=== PATIENT | female | born 1935 | race Caucasian/White ===

== ENCOUNTER 2019-08-02 16:37 | Inpatient (IN) | payer MEDICARE, BC ==
[~2019-08-02] VITALS: Ht 162.6 cm; Wt 49.0 kg
[2019-08-02] MEDS ORDERED: ACETAMINOPHEN ES 500 MG TABLET PO ONE (18:00)
[2019-08-02] MEDS ORDERED: NEOMY/BACITRA/POLYMYXIN B OINT UD PACKET TP ONE ×2 (18:00→18:04)
[2019-08-02] MEDS ORDERED: ACETAMINOPHEN ES 500 MG TABLET ONE (18:04)
--- NOTE | 2019-08-02 20:00 | NUR ---
Patient in room interacting with friend with no distress noted.
[2019-08-02] MEDS ORDERED: TDAP DIPH,PERTUSS,TET VAC/PF 0.5 ML DISP.SYRIN IM ONE ×2 (21:00→21:24)
--- NOTE | 2019-08-02 21:15 | NUR ---
MYLES BOURNE LIGHT ARMORED VEHICLE OFFICER GYMNASIUM TEACHER FOR EPIC INTO EVAL PATIENT.
[2019-08-02 21:18] LABS: BASOPHILS # (AUTO) 0.1 K/uL (0.0-8.0); BASOPHILS % (AUTO) 1.1 % (0.0-2.0); EOSINOPHILS # (AUTO) 0.1 K/uL (0.0-0.7); EOSINOPHILS % (AUTO) 1.3 % (0.0-7.0); HEMATOCRIT 28.7 % (31.2-41.9); HEMOGLOBIN 9.5 g/dL (10.9-14.3); LYMPHOCYTES % (AUTO) 20.8 % (20.5-51.5); MEAN CORPUSCULAR HGB CONC 33 g/dL (32.3-35.6); MEAN CORPUSCULAR VOLUME 87.2 fL (75.5-95.3); MONOCYTES # (AUTO) 0.5 K/uL (2.0-10.0); NEUTROPHILS # (AUTO) 3.2 K/uL (1.8-8.9); NEUTROPHILS % (AUTO) 65.8 % (38.5-71.5); PLATELET COUNT (AUTO) 78 K/uL (179-408); RED BLOOD CELL COUNT(AUTO) 3.29 MIL/uL (3.63-4.92); WHITE BLOOD COUNT (AUTO) 4.8 K/uL (3.8-11.8)
[2019-08-02 21:29] LABS: CREATININE 0.7 mg/dL (0.6-1.3); POTASSIUM 4.1 mmol/L (3.5-5.1)
[2019-08-02] MEDS ORDERED: Z GUARD REMEDY PASTE 57 GM TUBE TOP PRN (22:00)
[2019-08-02] MEDS ORDERED: MAGNESIUM HYDROXIDE 30 ML LIQUID UDC PO PRN (22:00)
[2019-08-02] MEDS ORDERED: ONDANSETRON 4 MG/2 ML VIAL IV PRN (22:00)
--- NOTE | 2019-08-02 22:35 | NUR ---
Transfered to 3rd floor via wheelchair.
[2019-08-02] MEDS: IV NS 1000 ML 1,000 ML IV PRN (23:37)
[2019-08-02 23:38] VITALS: BP 128/69
[2019-08-03 05:11] VITALS: BP 138/99
[2019-08-03 06:23] LABS: BASOPHILS % (AUTO) 0.6 % (0.0-2.0); EOSINOPHILS # (AUTO) 0.1 K/uL (0.0-0.7); EOSINOPHILS % (AUTO) 2.4 % (0.0-7.0); HEMATOCRIT 26.4 % (31.2-41.9); HEMOGLOBIN 8.8 g/dL (10.9-14.3); LYMPHOCYTES % (AUTO) 22.4 % (20.5-51.5); MEAN CORPUSCULAR HEMOGLOBIN 29.1 uug (24.7-32.8); MEAN CORPUSCULAR HGB CONC 33 g/dL (32.3-35.6); MONOCYTES # (AUTO) 0.6 K/uL (2.0-10.0); MONOCYTES % (AUTO) 12.9 % (0.0-11.0); NEUTROPHILS # (AUTO) 2.7 K/uL (1.8-8.9); NEUTROPHILS % (AUTO) 61.7 % (38.5-71.5); PLATELET COUNT (AUTO) 76 K/uL (179-408); RED BLOOD CELL COUNT(AUTO) 3.03 MIL/uL (3.63-4.92); WHITE BLOOD COUNT (AUTO) 4.4 K/uL (3.8-11.8)
[2019-08-03 07:08] LABS: CREATININE 0.6 mg/dL (0.6-1.3); MAGNESIUM 1.8 mg/dL (1.8-2.4); PHOSPHOROUS 2.9 mg/dL (2.5-4.9); POTASSIUM 3.7 mmol/L (3.5-5.1)
[2019-08-03 07:19] LABS: THYROID STIMULATING HORMONE 0.77 mIU/mL (0.358-3.740)
[2019-08-03 11:05] VITALS: BP 129/70
--- NOTE | 2019-08-03 11:15 | NUR ---
patient complained of left lower back/side pain. Tylenol 650 mg administered. will reassess patient's pain.
[2019-08-03] MEDS: ACETAMINOPHEN 325 MG TABLET PO PRN ×2 (11:18→22:29)
--- NOTE | 2019-08-03 12:00 | NUR ---
Patient verbalized that pain has subsided.
[2019-08-03] MEDS ORDERED: HYDROCODONE/APAP 5-325MG TABLET PO PRN (14:15)
[2019-08-03 15:34] VITALS: BP 121/50
--- NOTE | 2019-08-03 16:11 | NUR ---
patient's urine sent to lab.
--- NOTE | 2019-08-03 17:00 | NUR ---
right Radial pulse checked with doppler ultrasound. Sufficient blood flow noted , comparable to left arm. No complaints of pain or numbness.
--- NOTE | 2019-08-03 18:31 | NUR ---
Patient resting comfortably in bed at at this time. Wound dressing changed on right elbow. soft cast placed back in place. No complaints of pain verbalized by patient. Denies any SOB. Safety measures implemented. Bed alarm on, call light within reach of patient.
--- NOTE | 2019-08-03 19:25 | NUR ---
patient is awake , ambulatory with assist , on ra , iv intact on left hand ns 50 ml , right arm is on a sling , with sharath bandage and soft cast place and intact , able to move fingers on affevcted area , fingernails wnl
[2019-08-03 20:07] VITALS: BP 141/89
[2019-08-03] MEDS: IV NS 1000 ML 1,000 ML IV PRN ×2 (22:36→22:52)
--- NOTE | 2019-08-04 01:33 | NUR ---
Performs physical activity within means - Exhibits baseline mental status - Increases participation in ADL's - Increases activity Addendum: 08/04/19 at 0133 by SHANNON KING RN Amended: Johnny ramos. Addendum: 08/04/19 at 0133 kyree KING RN Amended: Johnny ramos. Addendum: 08/04/19 at 0134 by SHANNON KING RN Amended: Links added.
--- NOTE | 2019-08-04 01:33 | NUR ---
* Performs physical activity within means - Exhibits baseline mental status - Increases participation in ADL's - Increases activity Addendum: 08/04/19 at 0133 by SHANNON KING RN Amended: Links added. Addendum: 08/04/19 at 0134 kyree KING RN Amended: Links added.
--- NOTE | 2019-08-04 01:34 | NUR ---
* Understands anatomy and physiology * Describes reportable s/s * Understands treatment plan * Understands medication regime Addendum: 08/04/19 at 0134 by SHANNON KING RN Amended: Links added.
--- NOTE | 2019-08-04 01:34 | NUR ---
* Uses pain scale appropriately * Identify options for pain control - Analgesics - Narcotics - Non-medication measures Addendum: 08/04/19 at 0134 by SHANNON KING RN Amended: Links added.
--- NOTE | 2019-08-04 04:00 | NUR ---
sleeping soundly , arousable , jhonatan left hand intact , no distress , right arm is on sling with soft cast attached , fingernails wnl . sensation intact
--- NOTE | 2019-08-04 06:00 | NUR ---
AWAKE , ORIENTED , ABLE TO FOLLOW COMMAND , RIGHT ARM N A SLING SENSATION IS WNL ,
[2019-08-04 06:21] VITALS: BP 143/91
[2019-08-04 06:59] LABS: CREATININE 0.6 mg/dL (0.6-1.3); MAGNESIUM 1.8 mg/dL (1.8-2.4); PHOSPHOROUS 2.3 mg/dL (2.5-4.9); URIC ACID 3.5 mg/dL (2.6-6.0)
[2019-08-04 07:00] LABS: THYROID STIMULATING HORMONE 0.845 mIU/mL (0.358-3.740)
[2019-08-04 07:10] LABS: BASOPHILS % (AUTO) 0.5 % (0.0-2.0); EOSINOPHILS # (AUTO) 0.1 K/uL (0.0-0.7); EOSINOPHILS % (AUTO) 2.2 % (0.0-7.0); HEMOGLOBIN 8.6 g/dL (10.9-14.3); LYMPHOCYTES # (AUTO) 1.5 K/uL (20.0-40.0); LYMPHOCYTES % (AUTO) 27.1 % (20.5-51.5); MEAN CORPUSCULAR HGB CONC 33 g/dL (32.3-35.6); MEAN CORPUSCULAR VOLUME 87.6 fL (75.5-95.3); MONOCYTES # (AUTO) 0.6 K/uL (2.0-10.0); MONOCYTES % (AUTO) 10.8 % (0.0-11.0); NEUTROPHILS # (AUTO) 3.2 K/uL (1.8-8.9); NEUTROPHILS % (AUTO) 59.4 % (38.5-71.5); PLATELET COUNT (AUTO) 80 K/uL (179-408); RED BLOOD CELL COUNT(AUTO) 2.97 MIL/uL (3.63-4.92); WHITE BLOOD COUNT (AUTO) 5.4 K/uL (3.8-11.8)
[2019-08-04 11:15] VITALS: BP 141/48
--- NOTE | 2019-08-04 11:16 | NUR ---
Pt received, assessed, no acute distress, VSS, and able to make needs known. Pt AAOx4, denies pain. Pt seen by Md, plan of care discussed, wound care provided, soft cast to right arm in place, with sling. Left hand IV intact, running NS 50ml/hr. All comfort and safety measures implemented. Call light within reach, will continue to monitor for safety.
[2019-08-04 15:14] VITALS: BP 122/75
[2019-08-04] MEDS ORDERED: NEUTRA PHOS PACKET PO ONE (15:15)
[2019-08-04] MEDS: ACETAMINOPHEN 325 MG TABLET PO PRN (17:13)
--- NOTE | 2019-08-04 19:13 | NUR ---
Discharge order received. Plan of care discussed with Pt and family via phone. [facility] and MD cleared medically. All discharge concerns addressed. No home medications to return. Pt skin intact except for right elbow healing scab, photo placed in chart. Pt teaching provided, discharge paperwork completed, discussed, signed, and copy placed in chart. Follow up instructions include arranging appointment with PCP, and with Dr. Pineda in 1 week, [facility] to provide RN,PT,OT and aid for showering. IV and ID band removed. Pt safely wheeled out to private car with family friend Irvin driving. Will remove Pt from system shortly.
== END 2019-08-04 19:00 | disposition home health service (06) | DRG 562 ==
LOC: ER 16:42 → MEDSURG3 22:20
PROVIDERS: ADMIT Nurse Practitioner Acute Care; ATTEND Nurse Practitioner Acute Care
PROC: 4B02XSZ Measurement of Cardiac Pacemaker, External Approach (ICD-10-PCS; principal; 2019-08-03)
DX: S52.001A Unspecified fracture of upper end of right ulna, initial encounter for closed fracture (principal); N17.0 Acute kidney failure with tubular necrosis; D68.59 Other primary thrombophilia; E87.1 Hypo-osmolality and hyponatremia; M25.021 Hemarthrosis, right elbow; W01.0XXA Fall on same level from slipping, tripping and stumbling without subsequent striking against object, initial encounter; I48.91 Unspecified atrial fibrillation; E03.9 Hypothyroidism, unspecified; D63.8 Anemia in other chronic diseases classified elsewhere; D69.6 Thrombocytopenia, unspecified; I08.1 Rheumatic disorders of both mitral and tricuspid valves; Z82.49 Family history of ischemic heart disease and other diseases of the circulatory system; Z95.0 Presence of cardiac pacemaker; Z95.2 Presence of prosthetic heart valve; Z79.01 Long term (current) use of anticoagulants; Z79.890 Hormone replacement therapy; E86.1 Hypovolemia
CPT/HCPCS: 36415; 73080; 83735; 84100; 84300; 84443; 84550; 85025; 85730; 90715; 93005; 93307; A4663; A9150; G0378; J7030

== ENCOUNTER 2020-07-23 18:15 | Inpatient (IN) | payer MEDICARE, BC ==
[~2020-07-23] VITALS: Ht 157.5 cm; Wt 46.7 kg
[~2020-07-23 18:15] MED LIST: RIVA10TA PO; SYNTHROID
[2020-07-23] MEDS ORDERED: LEVO137T2 PO (18:30)
[2020-07-23] MEDS ORDERED: ZOLP5TAB2 PO (18:30)
[2020-07-23] MEDS ORDERED: MAGN250T37 PO (18:30)
[2020-07-23] MEDS ORDERED: METO25TA6 PO (18:30)
[2020-07-23] MEDS ORDERED: POTA10TA10 PO (18:30)
[2020-07-23] MEDS ORDERED: FURO-151 PO (18:30)
--- NOTE | 2020-07-23 18:43 | NUR ---
Patient brought in by RA 83 for BLE pain x2day post covid vaccination
[2020-07-23] MEDS ORDERED: MORPHINE SULFATE 2 MG/1 ML DISP.SYRIN IV ONE (18:45)
[2020-07-23] MEDS ORDERED: MORPHINE SULFATE 2 MG/1 ML DISP.SYRIN ONE (18:56)
[2020-07-23 19:17] LABS: HEMOGLOBIN 12.1 g/dL (10.9-14.3); LYMPHOCYTES # (AUTO) 0.1 K/uL (20.0-40.0)
[2020-07-23 19:19] LABS: BASOPHILS % (AUTO) 0.5 % (0.0-2.0); HEMATOCRIT 36.2 % (31.2-41.9); LYMPHOCYTES % (AUTO) 20.5 % (20.5-51.5); MEAN CORPUSCULAR HGB CONC 34 g/dL (32.3-35.6); MEAN CORPUSCULAR VOLUME 98.5 fL (75.5-95.3); MONOCYTES % (AUTO) 4.6 % (0.0-11.0); NEUTROPHILS # (AUTO) 0.4 K/uL (1.8-8.9); NEUTROPHILS % (AUTO) 72.4 % (38.5-71.5); PLATELET COUNT (AUTO) 84 K/uL (179-408); RED BLOOD CELL COUNT(AUTO) 3.68 MIL/uL (3.63-4.92)
--- NOTE | 2020-07-23 19:21 | NUR ---
Assumed care of patient. no acute distress noted. VSS
[2020-07-23 19:30] LABS: MAGNESIUM 1.7 mg/dL (1.8-2.4)
[2020-07-23 19:32] LABS: CREATININE 1.1 mg/dL (0.6-1.3); POTASSIUM 3.8 mmol/L (3.5-5.1)
[2020-07-23 19:37] LABS: WHITE BLOOD COUNT (AUTO) 0.5 K/uL (3.8-11.8)
[2020-07-23 19:38] LABS: THYROID STIMULATING HORMONE 0.023 mIU/mL (0.358-3.740)
[2020-07-23] MEDS ORDERED: VANCOMYCIN 1G/D5W 200 ML PIGGYBACK IV ONE (19:45)
[2020-07-23] MEDS ORDERED: DEXTROSE 50% 50 ML DISP.SYRIN IV ONE (19:45)
[2020-07-23] MEDS ORDERED: IV NS 1000 ML 1,000 ML IV ONE (19:45)
[2020-07-23] MEDS ORDERED: DOXYCYCLINE HYCLATE IV 100 MG in IV DEXTROSE 5% 100 ML IV ONE (19:45)
[2020-07-23] MEDS ORDERED: PIPERACILLIN SODIUM/TAZOBACTAM 3.375 G in IV DEXTROSE 5% 50 ML IV ONE (19:45)
[2020-07-23 19:46] LABS: BILIRUBIN,DIRECT 1.4 mg/dL (0.0-0.2); BILIRUBIN,TOTAL 2.8 mg/dL (0.2-1.0)
[2020-07-23] MEDS ORDERED: DEXTROSE 50% 50 ML DISP.SYRIN ONE (19:51)
[2020-07-23 19:58] LABS: BLASTS, MANUAL % 2 % (0-0); LYMPHOCYTES % (MANUAL) 22 % (20-40); MONOCYTES % (MANUAL) 11 % (2-10); NEUTROPHILS % (MANUAL) 65 % (42-75)
[2020-07-23] MEDS ORDERED: PIPERACILLIN/TAZOBACTAM/D5W 50 ML IV ONE (20:25)
[2020-07-23] MEDS ORDERED: MAGNESIUM SULFATE/D5W 100 ML ONE (20:51)
[2020-07-23] MEDS: MAGNESIUM SULFATE/D5W 100 ML IV SCH ×2 (20:51→23:13)
--- NOTE | 2020-07-23 20:56 | NUR ---
Patient in bed, RT completed ABG draw. IV ABX infusing and well tolerated. Direct observation continues. [facility] called for panel call/inpt admission.
[2020-07-23 20:58] LABS: ABG BASE EXCESS -9.5 mmol/L; ABG HCO3 16.1 mmol/L; ABG PCO2 34.2 mmHg (35.0-45.0); ABG PH 7.291 (7.350-7.450); ABG PO2 72.2 mmHg (75.0-100.0); ABG SITE RIGHT BRACHIAL; ABG TOTAL HEMOGLOBIN 12.1 G/dL (12.0-16.0); COHb 0.7 % (0.5-1.5); MetHb 0.2 % (0.0-1.5); O2Hb 91.4 % (94.0-97.0); VENT MODE Nasal Cannula
[2020-07-23] MEDS ORDERED: DOXYCYCLINE HYCLATE 100 MG INJ IV ONE (20:59)
[2020-07-23] MEDS ORDERED: MORPHINE SULFATE 2 MG/1 ML DISP.SYRIN IV PRN (21:30)
[2020-07-23] MEDS ORDERED: ACETAMINOPHEN 325 MG TABLET PO PRN (21:30)
[2020-07-23] MEDS ORDERED: METOPROLOL TARTRATE 25 MG TABLET PO SCH (21:30)
[2020-07-23] MEDS ORDERED: ONDANSETRON 4 MG/2 ML VIAL IV PRN (21:30)
--- NOTE | 2020-07-23 21:36 | NUR ---
Report to CCU. awaiting inpatient admission
[2020-07-23] MEDS ORDERED: IV NS 1000 ML 1,000 ML IV PRN (21:45)
[2020-07-23] MEDS ORDERED: VANCOMYCIN IV 200 ML ONE (21:52)
[2020-07-23 22:12] VITALS: BP 149/68
--- NOTE | 2020-07-23 22:12 | NUR ---
RECEIVED PATIENT FROM ER VIA STRETCHER PATIENT WAS ABLE TO STANDUP AND ASSISTED TO THE BED.PATIENT CONNECTED TO ICU EQUIPMENT AND HEART MONITOR ,ORIENTED WITH ROOM SET UPS . PATIENT NOTED TO SOB UPON EXERTION AND EVEN UPON REST .SHES ON 02 N/C AT 6 L/MIN . PATIENT TEMP 97.7 VIA ORALLY . PATIENT SKIN COLD BILATERAL HAND AND BILATERAL FOOT CYANOTIC.CALLED NURSING WOOL FLEECE GRADER FOR A ИРИНА HUGGER , PLACED PATIENT ON ИРИНА HUGGER .PATIENT ABLE TO ANSWER QUESTIONS .HOB UP . ADVISED TO CALL FOR ASSISTANCE AND NOT TO GET OUT OF BED ALONE . DUE MEDICATION SCAN AND GIVEN .
[2020-07-23 22:43] VITALS: BP 125/32
[2020-07-23 23:00] VITALS: BP 125/32
--- NOTE | 2020-07-23 23:15 | NUR ---
PATIENT GIVEN LOPRESSOR PO TOLERATED WITH SIPS OF WATER . HOB UP ASPIRATION PRECAUTION OBSERVED .
--- NOTE | 2020-07-23 23:26 | NUR ---
CALLED DOCTOR WERNER AND INFORMED HIM PATIENT LACTIC ACID RESULT 6.2 H, HE SAID PATIENT IN SEPTIC AND THAT WHY SHES ON ANTIBIOTICS AND NORMAL SALINE FOR MAINTENANCE FLUIDS . INFORMED MD THAT THE SATURATION IN LOW AND HER EXTREMITIES ARE COLD, BILATERAL HAND AND FOOT COLD AND CYANOTIC IN COLOR . HE SAID HE IS AWARE AND SAW HER IN ER, PLACED ИРИНА HUGGER AND ORAL TEMP 97.7. PATIENT SOB UPON EXERTION ,SATURATION 68 TO 70 NO A GOOD WAVE FORM MD AWARE AND SAID SHE IS JUST COLD . WILL CONTINUE TO MONITOR V/S AND LEVELS OF COMFORT AND MONITOR
[2020-07-24] VITALS (10 sets, daily range): BP systolic 0–136; BP diastolic 0–75
--- NOTE | 2020-07-24 00:46 | NUR ---
Patient was found unresponsive and not breathing. Called code blue. CPR initiated, ER MD was present and ordered first epi given at 0100, 0101 bicarb given, [address] given[address] Dr. Valderrama successfully intubated at 0115. Pulse check and faint and weak, CPR protocol and code blue protocol followed as directed by Dr. Valderrama.
--- NOTE | 2020-07-24 01:12 | NUR ---
second code, CPR and code blue protocol followed. See code sheet for medication administration. MD at bedside inserting right femoral central line.
--- NOTE | 2020-07-24 01:15 | NUR ---
Dr. Valderrama is at bedside on the phone with son and Dr. Yuen (covering for primary physician Dr. Carlin discussing code status and explaining to the son regarding the patient's condition.
[2020-07-24] MEDS: NOREPINEPHRINE BITARTRATE 8 MG in IV NORMAL SALINE 242 ML IV PRN ×2 (01:30→04:20)
[2020-07-24] MEDS: VASOPRESSIN 20 UNIT in IV NORMAL SALINE 40 ML IV PRN ×2 (02:00→03:19)
--- NOTE | 2020-07-24 02:00 | NUR ---
Informed Dr. Mccracken about patient's status.
[2020-07-24] MEDS ORDERED: HYDROCORTISONE SOD SUCCINATE 100 MG/2 ML VIAL IV ONE (02:15)
--- NOTE | 2020-07-24 02:44 | NUR ---
Per perri Thornton, he would like to honor patients wish on Advance Directive. Patient wish to be a DNR.
[2020-07-24] MEDS ORDERED: PHENYLEPHRINE IV 100 MG in IV NORMAL SALINE 240 ML IV PRN (04:00)
--- NOTE | 2020-07-24 04:23 | NUR ---
drShaniqua LOCKHART at bedside ,spoked with patient son HARISH and HARISH . DISCUSSED patient condition how the code was conducted .DOCTOR explained the plan of treatment and intervention .harish gave RN patient advised directive place in chart .
[2020-07-24 04:27] LABS: *BLOOD, URINE 1+ (NEGATIVE); *CLARITY,URINE SLIGHTLY CLOUDY (CLEAR); *COLOR,URINE YELLOW (YELLOW); *KETONES,URINE TRACE (NEGATIVE); LEUKOCYTE ESTERASE ,URINE NEGATIVE (NEGATIVE); NITRITE, URINE NEGATIVE (NEGATIVE); UGLUCOSE NEGATIVE (NEGATIVE)
--- NOTE | 2020-07-24 04:37 | NUR ---
[facility]ED [facility] SPOKED WITH SERA GOMES AND SPOKED WITH DR:JEANIE ,PATIENT SON LYUBOV AT BEDSIDE WANTS TO FOLLOW MOTHERS ADVANCE DIRECTIVE WHICH IS DNR . OBTAINED ORDER FROM SERA GOLDSMITH FOR PALLIATIVE CARE AND START PATIENT ON MORPHINE DRIP AND TO CALL RESPIRATORY THERAPIST FOR TERMINAL EXTUBATION .FAMILY SON AND DAUGHTER IN LAW STILL AT B/S..
[2020-07-24] MEDS ORDERED: PROCHLORPERAZINE EDISYLATE 10 MG/2 ML VIAL IV PRN (05:00)
[2020-07-24] MEDS ORDERED: LORAZEPAM 2 MG/1 ML VIAL IV PRN (05:00)
[2020-07-24] MEDS ORDERED: GLYCOPYRROLATE 0.2 MG/ML VIAL IV PRN (05:00)
[2020-07-24] MEDS ORDERED: MORPHINE SULFATE PF IV DRIP 100 MG in IV DEXTROSE 5% 96 ML IV PRN ×4 (05:00)
--- NOTE | 2020-07-24 05:15 | NUR ---
PATIENT SON VERBALIZED THAT HE WANTS HIS MOM TO BE EXTUBATED HE WANTS TO FOLLOW PATIENTS WISHES PER PATIENT ADVANCE DIRECTIVE .NOTIFIED INSOLE AND HEEL STIFFENER JANAE AND WITH ORDERS FOR PALLIATIVE CARE AND TO FOLLOW PROTOCOL FOR PALLIATIVE EXTUBATION TO START PATIENT ON MORPHINE DRIP .AND TO CALL RESPIRATORY THERAPIST FOR EXTUBATION .
[2020-07-24 05:25] LABS: *BILIRUBIN,URIN 1+ (NEGATIVE)
--- NOTE | 2020-07-24 05:30 | NUR ---
NOTIFIED SERA CARDOSO PATIENT NO HEART TONES ,NO PALPABLE PULSE ,NO BP ,PUPILS FIXED AND DILATED . MAX ON LEVOPHED DRIP,VASOPRESSIN DRIP /NORSYNEPHRINE DRIP . AND WILL CALL DRShaniqua WARE TO PRONOUNCE THE BODY .P
--- NOTE | 2020-07-24 05:35 | NUR ---
CALLED SERA CARDOSO PATIENT NO BP NO HEART TONE NO HR NO BP PASS AWAY MORPHINE WAS NOT STARTED SHE SAID NO NEED IF PATIENT PASS WAY .
--- NOTE | 2020-07-24 05:42 | NUR ---
PATIENT WAS PRONOUNCE BY DR:JEANIE ,PATIENTS SON AT B/S AND PATIENTS . .
[2020-07-24] MEDS ORDERED: SODIUM BICARBONATE 8.4% 50 MEQ/50 ML DISP.SYRIN IV ONE (05:48)
[2020-07-24] MEDS ORDERED: NOREPINEPHRINE BITARTRATE 4 MG/4 ML VIAL IV ONE (05:48)
[2020-07-24] MEDS ORDERED: DEXTROSE 50% 50 ML DISP.SYRIN IV ONE (05:48)
[2020-07-24] MEDS ORDERED: EPINEPHRINE 1:10,000 1 MG/10 ML DISP.SYRIN IV ONE (05:48)
--- NOTE | 2020-07-24 06:00 | NUR ---
[facility] WAS CALLED SHE WAS NOT A CANDIDATE FOR ORGAN DONATION CASE NO . [id number].
--- NOTE | 2020-07-24 06:00 | NUR ---
PATIENTS BELONGINGS GIVEN TO PATIENTS SON .
[2020-07-24 06:07] LABS: BACTERIA,URINE MODERATE /HPF (NONE SEEN)
[2020-07-24 06:08] LABS: SQUAMOUS EPITHELIAL CELL,UR MODERATE /HPF (NONE SEEN); URINE AMORPHOUS URATE MANY /HPF
--- NOTE | 2020-07-24 06:30 | NUR ---
POST MORTEM CARE DONE TAG BODY AND CALLED NURSING BARKEEP AND NOTIFIED BODY READY FOR BLACK AND WHITE PRINTER OPERATOR AND BELONGING GIVEN TO PATIENT SON.
[2020-07-24] MEDS ORDERED: PANTOPRAZOLE SODIUM 40 MG TABLET.DR PO SCH (07:00)
[2020-07-24] MEDS ORDERED: NOREPINEPHRINE BITARTRATE 32 MG in IV NORMAL SALINE 218 ML IV PRN (07:30)
--- NOTE | 2020-07-24 07:30 | NUR ---
CALLED SECURITY AND BODY WAS SEND [place] [facility] [place]
[2020-07-24] MEDS ORDERED: SCOPOLAMINE PATCH 1 MG/72 HRS PATCH TD SCH (09:00)
[2020-07-24] MEDS ORDERED: CEFEPIME HCL 1 G in IV DEXTROSE 5% 50 ML IV SCH (09:00)
[2020-07-24] MEDS ORDERED: RIVAROXABAN 10 MG TABLET PO SCH (18:00)
[2020-07-24] MEDS ORDERED: DOCUSATE SODIUM 100 MG CAPSULE PO SCH (21:00)
[2020-07-25] MEDS ORDERED: LEVOTHYROXINE SODIUM 75 MCG TABLET PO SCH (07:00)
[2020-07-25] MEDS ORDERED: VANCOMYCIN IV 750 MG in IV DEXTROSE 5% 250 ML IV SCH (10:00)
== END 2020-07-24 05:49 | disposition expired | DRG 871 ==
LOC: ER 18:17 → CCU 21:51
PROVIDERS: ADMIT Internal Medicine; ATTEND Internal Medicine
DX: A41.9 Sepsis, unspecified organism (principal); J18.9 Pneumonia, unspecified organism; G92 Toxic encephalopathy; J96.01 Acute respiratory failure with hypoxia; I21.A1 Myocardial infarction type 2; E87.1 Hypo-osmolality and hyponatremia; E87.2 Acidosis; I48.20 Chronic atrial fibrillation, unspecified; M62.82 Rhabdomyolysis; I48.91 Unspecified atrial fibrillation; Z79.01 Long term (current) use of anticoagulants; Z66 Do not resuscitate; D69.6 Thrombocytopenia, unspecified; R62.7 Adult failure to thrive; Z20.822 Contact with and (suspected) exposure to COVID-19; Z79.890 Hormone replacement therapy; Z95.0 Presence of cardiac pacemaker; E03.9 Hypothyroidism, unspecified; D72.819 Decreased white blood cell count, unspecified; I50.9 Heart failure, unspecified; E80.6 Other disorders of bilirubin metabolism; I51.7 Cardiomegaly
CPT/HCPCS: 36415; 36600; 70030-TC; 71045; 83605; 83690; 83735; 84443; 85025; 85730; 87040; 87077; 87086; 87400; 93005; 94002; A4663; G0378; J0171; J0692; J2270; J2543; J3370; J3475; J3490; J7030; J7050; J7060; U0003